=== PATIENT | female | born 1995 | race Two or more races ===

== ENCOUNTER 2025-06-29 19:42 | Emergency (ER) | payer MEDICAID, SELFPAY ==
[2025-06-29 20:31] LABS: Collection Type, Urine Clean Catch
[2025-06-29 20:37] VITALS: BP 113/72; PULSE 84; RESP 16; TEMP 36.8; O2SAT 98; BMI 35.6
[2025-06-29 20:39] LABS: HCG Qualitative,Urine Negative
[2025-06-29 20:41] LABS: Bilirubin,Urine 1+ (Negative); Blood,Urine Negative (Negative); Clarity,Urine Clear (Clear/Hazy); Color,Urine Drk-Yellow (Lt Yel-Yel); Glucose, Urine Negative (Negative); Ketones,Urine Negative (Negative); Leukocyte Esterase,Urine Positive (Negative); Nitrite,Urine Positive (Negative); PH,Urine 6.0 (5.0-7.0); Protein,Urine Negative (Neg - Trace); RBC,Urine 3 /hpf (0-3); Specific Gravity,Urine 1.013 (1.001-1.035); Squamous Epithelial Cell,Urine 7 /hpf (0-5); Urobilinogen,Urine 3.0 mg/dL (0.0-1.0); WBC,Urine 6 /hpf (0-5)
[2025-06-29 20:46] LABS: Culture Indicated,Urine Yes
--- NOTE | 2025-06-29 21:02 | PD.EDFMALE ---
ED Female Urogenital RME/HPI General Chief complaint: Abdominal Pain Stated complaint: PAINFUL URINATION Time Seen by Provider: 06/29/25 20:45 Arrival date/time: 06/29/25 19:42 30F with no significant PMH presents to ED with several days of dysuria. Patient went to PCP and is on day 2 of cipro. Patient states she doesn't feel better yet. Limitations: no limitations Related Data Home Medications ?Medication ?Instructions ?Recorded ?Confirmed vits no.[id number]-[id number] fum 1 tab PO DAILY 03/02/22 07/28/22 27 mg iron-folic acid 800 mcg tablet ( Vitamin) Previous Rx's ?Medication ?Instructions ?Recorded docusate sodium 100 mg capsule 100 mg PO BID #60 caps 07/28/22 (Colace) ibuprofen 600 mg tablet 600 mg PO Q6H PRN pain #90 tabs 07/28/22 lanolin 50 % topical ointment 1 applic topical TID PRN skin 07/28/22 irritation #15 tubes cephalexin 500 mg capsule 500 mg PO QID #28 caps 08/11/22 Allergies Allergy/AdvReac Type Severity Reaction Status Date / Time No Known Allergies Allergy Unknown Verified 07/28/22 00:03 Review of Systems Review of Systems Systems Reviewed: All systems reviewed, normal except as documented Constitutional Constitutional: Reports system reviewed and no additional complaints, except as documented, Denies fever(s) and Denies headache(s) ENT Ears, Nose, Mouth, and Throat: Denies disequilibrium and Denies headache(s) Cardiovascular Cardiovascular: Reports system reviewed and no additional complaints, except as documented, Denies chest pain and Denies dyspnea Respiratory Respiratory: Reports system reviewed and no additional complaints, except as documented, Denies cough and Denies dyspnea Gastrointestinal Gastrointestinal: Reports system reviewed and no additional complaints, except as documented, Denies abdominal pain, Denies nausea and Denies vomiting Genitourinary Genitourinary: Reports as per HPI and Reports dysuria Neurologic Neurologic: Reports system reviewed and no additional complaints, except as documented, Denies confusion, Denies disequilibrium and Denies headache(s) Psychiatric Psychiatric: Denies confusion Past Medical History Past Medical History NEUROLOGIC: Negative Neurological Disorders or Seizures CARDIAC: Negative Cardiac Disorders or Congestive Heart Failure RESPIRATORY: Negative Chronic Obstructive Pulmonary Disease (COPD) GASTROINTESTINAL: Negative Gastrointestinal Disorders, Hepatitis or Colorectal Cancer GENITOURINARY: Positive Genitourinary Disorders; Negative Renal Disease or Prostate Cancer REPRODUCTIVE: Positive Previous Pregnancies; Negative Breast Cancer or Testicular Cancer MUSCULOSKELETAL: Negative Musculoskeletal Disorders or Bone Cancer ENDOCRINE: Negative Endocrine Disorders, Diabetes Mellitus Type 1 or Diabetes Mellitus Type 2 HEMATOLOGIC: Positive Blood Disorders and Anemia OTHER HISTORY: Negative Hospitalization, Autoimmune Disease, Down Syndrome, Developmental Delay, Shingles, Falls, Blood Transfusions, Blood Transfusion Reaction, Anesthesia Reactions, Organ Transplant, Chemotherapy, Radiation Therapy, Hyperbaric Therapy, MRSA, VRSA, Vancomycin-Resistant Enterococci, Human Immunodeficiency Virus (HIV), Chicken Pox, Measles, Mumps, Rubella (Telugu Measles), Pertussis, Clostridium Difficile, Cancer, Breast Cancer, Cervical Cancer, Colorectal Cancer, Lung Cancer, Ovarian Cancer, Prostate Cancer or Testicular Cancer Family History FAMILY HISTORY: Negative Family Psychiatric Problems, Family Respiratory Disorders, Family Cardiac Disorders, Family Gastrointestinal Problems, Family Cancer, Family Surgery or Family Anesthesia Reaction Surgical History SURGICAL: Negative Section or Organ Transplant Social History SMOKING STATUS: Never smoker ED Exam General Limitations: Present no limitations General appearance: Present alert and in no apparent distress Head Head exam: Present atraumatic Eye Eye exam: Present normal appearance, PERRL and EOMI ENT ENT exam: Present normal exam, normal oropharynx and mucous membranes moist Neck Neck exam: Present normal inspection, full ROM and trachea midline Chest Chest inspection: Present normal inspection and symmetric chest wall rise Respiratory Respiratory exam: Present normal lung sounds bilaterally Cardiovascular Cardiovascular exam: Present regular rate, normal rhythm and normal heart sounds Abdominal Exam Abdominal exam: Present soft and normal bowel sounds Extremities Exam Extremities exam: Present normal inspection and full ROM Back Exam Back exam: Present normal inspection and full ROM Neurological Exam Neurological exam: Present alert, oriented X3 and CN II-XII intact Psychiatric Psychiatric exam: Present normal affect and normal mood Skin Skin exam: Present warm, dry, intact and normal color Course Quality Measures none Orders Category Date Time Status HCG Qualitative,Urine Stat Lab 06/29/25 20:26 Completed Urinalysis, C/S if Indicated Stat Lab 06/29/25 20:26 Completed Urine Culture Stat Lab 06/29/25 20:26 Received Naproxen [Naprosyn] Med 06/29/25 20:45 Discontinued 500 mg PO X1 ONE Vital Signs Vital signs: Vital Signs Temperature 98.3 F 06/29/25 20:37 Pulse Rate 84 06/29/25 20:37 Respiratory Rate 16 06/29/25 20:37 Blood Pressure 113/72 06/29/25 20:37 Pulse Oximetry (%) 98 06/29/25 20:37 Oxygen Delivery Method Room Air 06/29/25 20:37 O2 at 98% on RA and WNLs Urogenital - Female MDM Narrative MDM Narrative:: 30F with no significant PMH presents to ED with several days of dysuria. Patient went to PCP and is on day 2 of cipro. Patient states she doesn't feel better yet. Physical exam reveals well-appearing female. Patient is afebrile, calm, and alert. UA no gross UTI or other abnormalities. Meds and drug abuse counselor given. HCG neg. Patient data External records reviewed:: [facility] previous records Clinical information provided by:: patient Social determinants that could affect healthcare access:: none Patient has the following chronic illnesses:: none How is presenting disease/condition affected by chronic disease/condition?: no chronic disease Evaluation data The following diagnostics were reviewed and interpreted by me:: lab results Lab and/or radiology exams considered but not ordered:: ordered Interpretation Summary: above Medications / Prescriptions Medications or Prescriptions considered but not ordered:: ordered Medication administrations:: Medication Administration History Discontinued Medications Naproxen (Naproxen 250 Mg Tablet) 500 mg PO X1 ONE Stop: 06/29/25 20:46 above Consultations Consultation(s) initiated? (list below): No Diagnosis Urogenital Female Differential Diagnosis: urinary tract infection, bacterial vaginosis, trichomoniasis, cervicitis, ovarian cyst, vaginitis, ruptured ovarian cyst, cyst of Bartholin's gland, cystitis, dysmenorrhea and other (dysuria) Most likely diagnosis given after review of the tests above:: dysuria Admission Indicated Admission indicated?: not indicated Admission Request Was there a request for admission?: No Disposition Plan Disposition Plan: Discharge Discharge Attestation Discharge Attestation: The patient and all family members were given an opportunity to ask questions and understood the discharge instructions. Discharge instructions specifically effects, indications for sooner follow up or return to the emergency department, and the expected course of current diagnosis. Patient condition: Stable Discharge Plan Plan Patient Disposition: HOME (Self Care) Discharge Disposition comment: Stable Prescriptions/Referrals Prescriptions/Med Rec: No Action Vitamin 27 mg iron- 800 mcg tablet 1 tab PO DAILY Patient Comments: take 1 tablet by mouth once daily cephalexin 500 mg capsule 500 mg PO QID Qty: 28 0RF docusate sodium [Colace] 100 mg capsule 100 mg PO BID Qty: 60 0RF ibuprofen 600 mg tablet 600 mg PO Q6H PRN (Reason: pain) Qty: 90 0RF lanolin 50 % ointment 1 applic topical TID PRN (Reason: skin irritation) Qty: 15 0RF Problem List Clinical Impression: Dysuria Patient/Caregiver Discharge Instructions Education Materials: ED Dysuria, Uncertain Cause (Adult) Additional Instructions: Please follow-up with PCP within 24-48 hours and return immediately if symptoms worsen. Finish ABX. Follow-up with patient portal for UC results. NSAIDs like ibuprofen tend to work better for this type of pain. Print Language: Estonian Stand Alone Forms: Patient Portal Info Letter PA/IT RISK ANALYST Supervising Physician PA/DOROTA Supervising Physician: Dr. Aguilera
[2025-06-29] MEDS: NAPROXEN 250 MG TABLET 500 MG PO (21:03)
[2025-06-29 21:06] VITALS: BP 120/76; PULSE 68; RESP 19; TEMP 36.6; O2SAT 99
== END 2025-06-29 21:06 | disposition home or self-care (01) ==
LOC: SERX 21:03
PROVIDERS: Physician Assistant; Emergency Provider Emergency Medicine; PCP Family Medicine
DX: R30.0 Dysuria (principal)
CPT/HCPCS: 81001; 81025; 87086; 99283; A9270